=== PATIENT | female | born 1945 | race Caucasian/White ===

== ENCOUNTER 2018-01-06 09:51 | Day surgery (SDC) | payer MEDICARE, OTHER ==
[2018-01-06] MEDS ORDERED: PROPOFOL 40 ML (10:46)
[2018-01-06] MEDS ORDERED: LIDOCAINE 2% (SDV) 5 ML INJ (10:46)
== END 2018-01-06 14:09 | disposition home or self-care (01) ==
LOC: GIL 09:51
DX: K92.1 Melena (principal); D12.5 Benign neoplasm of sigmoid colon; E11.9 Type 2 diabetes mellitus without complications; E78.5 Hyperlipidemia, unspecified; E66.9 Obesity, unspecified; Z68.30 Body mass index [BMI] 30.0-30.9, adult; K57.90 Diverticulosis of intestine, part unspecified, without perforation or abscess without bleeding; K64.8 Other hemorrhoids
CPT/HCPCS: 45380; 82962; 88305

== ENCOUNTER 2018-01-15 05:47 | Day surgery (SDC) | payer MEDICARE, OTHER ==
[2018-01-15] MEDS ORDERED: TRYPAN BLUE 0.5 ML SYG IO (06:26)
[2018-01-15] MEDS ORDERED: LIDOCAINE 1%/EPI 30 ML INJ (06:30)
[2018-01-15] MEDS ORDERED: CARBACHOL 0.01% 1.5 ML OPH INJ (06:30)
[2018-01-15] MEDS ORDERED: EPINEPHrine 1 MG INJ (06:31)
[2018-01-15] MEDS ORDERED: TOBRAMYCIN 0.3% 3.5 GM OPH OINT (06:31)
[2018-01-15 06:56] LABS: ADD MAN DIFF? NO
[2018-01-15 07:02] LABS: BASOPHIL # 0.1 10^3/ul (0.0-0.1); BASOPHILS % 1.3 % (0.0-2.0); EOSINOPHILS # 0.1 10^3/ul (0.0-0.5); EOSINOPHILS % 1.7 % (0.0-7.0); HEMATOCRIT 39.4 % (37.0-47.0); HEMOGLOBIN 13.7 g/dl (12.0-16.0); LYMPHOCYTES # 1.5 10^3/ul (0.8-2.9); LYMPHOCYTES % 24.3 % (15.0-51.0); MEAN CORPUSCULAR HEMOGLOBIN 28.1 pg (29.0-33.0); MEAN CORPUSCULAR HGB CONC 34.8 g/dl (32.0-37.0); MEAN CORPUSCULAR VOLUME 80.9 fl (82.0-101.0); MEAN PLATELET VOLUME 11.5 fl (7.4-10.4); MONOCYTE # 0.6 10^3/ul (0.3-0.9); NEUTROPHILS % 63.4 % (39.0-77.0); PLATELET COUNT 245 10^3/UL (140-415); RED BLOOD COUNT 4.87 10^6/ul (4.20-5.40); RED CELL DISTRIBUTION WIDTH 12.6 % (11.5-14.5)
[2018-01-15 07:02] LABS: WHITE BLOOD COUNT 6.3 10^3/ul (4.8-10.8)
[2018-01-15] MEDS: TROPICAMIDE 1% 3 ML OPH OPER (07:15)
[2018-01-15] MEDS: CYCLOPENTOLATE 2% 2 ML OPH OPER (07:15)
[2018-01-15] MEDS: TETRACAINE 0.5% 4 ML OPH OPER (07:15)
[2018-01-15] MEDS: MOXIFLOXACIN 0.5% 3 ML OPH OPER (07:15)
[2018-01-15] MEDS: PHENYLephrine 10% 5 ML OPH OPER (07:15)
[2018-01-15] MEDS: BROMFENAC SODIUM 1.7 ML OPH DROP OPER (07:16)
[2018-01-15] MEDS: LACTATED RINGER'S 1,000 ML IV (07:16)
[2018-01-15] MEDS: LIDOCAINE 3.5% GEL TUBE OPER (07:16)
[2018-01-15] MEDS: CARBACHOL 0.01% 1.5 ML OPH INJ RIGHT EYE (07:18)
[2018-01-15] MEDS: LIDOCAINE 1%/EPI 30 ML INJ INJ (07:18)
[2018-01-15] MEDS: NA HYALURONATE/CHONDROITIN 0.5 ML SYG RIGHT EYE (07:18)
[2018-01-15 07:21] LABS: INR 0.91; PROTIME 12.3 Sec (11.9-14.9)
[2018-01-15 07:22] LABS: PARTIAL THROMBOPLASTIN TIME 26.9 Sec (25.0-35.0)
[2018-01-15] MEDS ORDERED: MIDAZOLAM 1 MG/ML 2 ML INJ (07:26)
[2018-01-15] MEDS ORDERED: FENTAnyl 50 MCG/ML VIAL (07:26)
[2018-01-15] MEDS ORDERED: hydrALAzine 20 MG INJ (07:35)
[2018-01-15 07:42] LABS: ANION GAP 16 (8-16); CARBON DIOXIDE 28 mmol/L (21-31); CHLORIDE 106 mmol/L (97-110); GLUCOSE 182 mg/dl (70-220)
[2018-01-15 07:44] LABS: BLOOD UREA NITROGEN 14 mg/dl (7-20); CALCIUM 9.2 mg/dl (8.4-10.2); CREATININE 0.53 mg/dl (0.44-1.00); POTASSIUM 3.8 mmol/L (3.5-5.1); SODIUM 146 mmol/L (135-144)
[2018-01-15] MEDS ORDERED: hydrALAzine 20 MG INJ IV (08:00)
[2018-01-15] MEDS ORDERED: FENTAnyl 50 MCG/ML VIAL IV (08:00)
[2018-01-15] MEDS ORDERED: LABETALOL HCL 20MG INJ IV (08:00)
[2018-01-15] MEDS ORDERED: CEFAZOLIN 1 GM INJ (08:02)
[2018-01-15] MEDS ORDERED: NA HYALURONATE/CHONDROITIN 0.5 ML SYG BOTH EYES (12:30)
== END 2018-01-15 09:48 | disposition home or self-care (01) ==
LOC: SDS 05:47
DX: H25.11 Age-related nuclear cataract, right eye (principal); I10 Essential (primary) hypertension; E11.9 Type 2 diabetes mellitus without complications
CPT/HCPCS: 66984; 80048; 82962; 85025; 85610; 85730